=== PATIENT | male | born 1950 | race Caucasian/White ===

== ENCOUNTER 2024-12-21 08:26 | Day surgery (SDC) | payer MEDICARE, BC, SELFPAY ==
[2024-12-21] VITALS (12 sets, daily range): BP systolic 83–131; BP diastolic 59–84; PULSE 57–72; RESP 12–20; TEMP 35.9–36.6; O2SAT 92–98
[2024-12-21] MEDS: LACTATED RINGERS 1000 ML 1,000 ML 100 ML IV (08:35)
[2024-12-21] MEDS: SODIUM CHLORIDE 0.9 % (FLUSH) 10 ML SYRINGE IVF (08:59)
[2024-12-21] MEDS: CEFAZOLIN 1 GM inj IVP (10:19)
--- NOTE | 2024-12-21 10:32 | SUR.OPER ---
PATIENT QUESTIONS ANSWERED SATISFACTORILY PREOPERATIVELY.? PATIENT BROUGHT TO OR #2 PER CART.? Patient positioned supine on OR #2 bed.? The perioperative?team supported arms bilaterally on arm boards.? Final approval of positioning by surgeon.? CONTINUOUS IRRIGATION OF THE RIGHT KNEE DURING THE PROCEDURE WITH NACL.
--- NOTE | 2024-12-21 10:41 | P.ANES_ITS ---
Anesthesia Charges Start Date/Time Anesthesia Start Date: 12/21/24 Anesthesia Start Time: 10:05 Stop Date/Time Anesthesia Stop Date: 12/21/24 Anesthesia Stop Time: 11:04 Summary Extremes of Age - Over 70 or under 1: WAREHOUSE ANALYST Coding CPT Codes CPT Codes: ANESTH KNEE JOINT SURGERY - 82396 ([id number]) P4 - PT W/SEV SYS DIS THREAT LIFE, QK - SENIOR WIND TURBINE TECHNICIAN 2-4 CNCRNT ANES PROC, QX - WAREHOUSE ANALYST SVC W/ MD MED DIRECTION Additional Codes: Summary - Extremes of Age - Over 70 or under 1: WAREHOUSE ANALYST ([id number])
--- NOTE | 2024-12-21 10:41 | W.ANESCHARGE ---
Anesthesia Charges Start Date/Time Anesthesia Start Date: 12/21/24 Anesthesia Start Time: 10:05 Stop Date/Time Anesthesia Stop Date: 12/21/24 Anesthesia Stop Time: 11:04 Summary Extremes of Age - Over 70 or under 1: SUMMER CAMP COUNSELOR Coding CPT Codes CPT Codes: ANESTH KNEE JOINT SURGERY - 09218 ([id number]) P4 - PT W/SEV SYS DIS THREAT LIFE, QK - HEATER PLANER OPERATOR 2-4 CNCRNT ANES PROC, QX - SUMMER CAMP COUNSELOR SVC W/ MD MED DIRECTION Additional Codes: Summary - Extremes of Age - Over 70 or under 1: SUMMER CAMP COUNSELOR ([id number])
--- NOTE | 2024-12-21 10:42 | P.ANES_ITS ---
Anesthesia Charges Start Date/Time Anesthesia Start Date: 12/21/24 Anesthesia Start Time: 10:05 Stop Date/Time Anesthesia Stop Date: 12/21/24 Anesthesia Stop Time: 11:04 Summary Extremes of Age - Over 70 or under 1: MDA Coding CPT Codes CPT Codes: ANESTH KNEE JOINT SURGERY - 95193 ([id number]) P4 - PT W/SEV SYS DIS THREAT LIFE, QK - ICT SUPPORT ENGINEER 2-4 CNCRNT ANES PROC, QX - CABLE RIGGER SVC W/ MD MED DIRECTION Additional Codes: Summary - Extremes of Age - Over 70 or under 1: MDA ([id number])
--- NOTE | 2024-12-21 10:42 | W.ANESCHARGE ---
Anesthesia Charges Start Date/Time Anesthesia Start Date: 12/21/24 Anesthesia Start Time: 10:05 Stop Date/Time Anesthesia Stop Date: 12/21/24 Anesthesia Stop Time: 11:04 Summary Extremes of Age - Over 70 or under 1: MDA Coding CPT Codes CPT Codes: ANESTH KNEE JOINT SURGERY - 40887 ([id number]) P4 - PT W/SEV SYS DIS THREAT LIFE, QK - BLADDER CLEANER 2-4 CNCRNT ANES PROC, QX - NEWSPAPER CLIPPER SVC W/ MD MED DIRECTION Additional Codes: Summary - Extremes of Age - Over 70 or under 1: MDA ([id number])
[2024-12-21] MEDS: BUPIVACAINE 0.25% 30 ML INJECTION (10:48)
--- NOTE | 2024-12-21 10:52 | P.ORPRC_ITS ---
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 Operative intervention was recommended. The risks, benefits and expected outcomes were discussed in detail. These included but were not limited to: Infection, bleeding, injury to blood vessel or nerve, venous thromboembolism. All questions were answered to their satis faction. PROCEDURE: Spinal anesthesia was administered. The patient was placed supine on the operating room table. The right lower extremity was prepped and draped in the usual sterile fashion. The limb was exsanguinated with the Nishant bandage. The pneumatic tourniquet was inflated to 300 mmHg. A standard anterolateral portal was established. The arthroscope was introduced. The working portal was established anteromedially. Diagnostic arthroscopy was performed with findings as follows: The patellar component is intact with circumferential scarring surrounding it. The femoral component is normal, the tibial polyethylene is normal. The scarring posterior to the patellar tendon was debrided with the radiofrequency probe and shaver. A superolateral portal was placed. Then we ag gressively debrided around the patellar component and posterior to the quads tendon with the shaver and radiofrequency probe. There was a small amount of cement over the lateral side of the femoral c omponent. This was debrided with the shaver. Arthroscopic instruments were removed, the portal sites were closed with a 3-0 nylon. Portals were injected with 0.25% Marcaine without epinephrine. A dry dressing was applied, the tourniquet was released. Sponge and needle counts were correct x 2. The patient tolerated the procedure well. There were no apparent complications. They were carefully transferred to the hospital bed and taken to the postanesthesia care unit in satisfactory condition. PLAN: The patient will be discharged to home. They may weightbear as tolerates. Range of motion will be unrestricted. They will follow up in the office in 2 weeks for a wound check and suture removal.
--- NOTE | 2024-12-21 11:39 | SUR.PHASEI ---
Pt AOx3, no c/o pain. Refused ice pack. Total of 420 IVF given between OR and PACU
== END 2024-12-21 12:28 | disposition home or self-care (01) ==
LOC: OR 08:29
PROVIDERS: PCP Internal Medicine; Visit Provider Orthopaedic Surgery
PROC: (CPT 29870; principal; 2024-12-21 09:45)
DX: M25.861 Other specified joint disorders, right knee (principal)
CPT/HCPCS: 29877; 01400; 99100; J0665; J0690; J1100; J2250; J2405; J2704; J3010; J3490; J7120

== ENCOUNTER 2025-05-23 08:43 | Outpatient (CLI) | payer MEDICARE, BC, SELFPAY ==
--- NOTE | 2025-05-23 09:17 | P.PCN_ITS ---
Procedure Note Time Seen by Provider: :20 Date Seen: 05/23/25 Provider Contact Time: 09:50 Date of procedure: 05/23/25 Will [facility] bill your pro fee for this procedure?: Yes Procedure: CRYONEUROLYSIS TREATMENT REPORT REFERRING PROVIDER: Pa Pretty TREATMENT PROVIDER: Jona Gonzalez PREOPERATIVE DIAGNOSIS: Right knee pain following right total knee arthroplasty POSTOPERATIVE DIAGNOSIS: Right knee pain following right total knee arthroplasty? PROCEDURE: Cryoneurolysis of Multiple Sensory Nerves of the Knee ANESTHESIA: Local INDICATIONS: The patient is a very pleasant 74-year-old male patient with knee pain following total knee arthroplasty involving the right knee who presents today for cryoneurolysis of multiple sensory nerves to the knee for severe knee pain.?Patient medical history was reviewed. The risks, benefits, treatment alte rnatives, and complications were discussed with the patient, including but not limited to bleeding, infection, nerve or tissue damage.?Informed consent was obtained. ? PRE-TREATMENT MOTOR ASSESSMENT/PAIN SCORE: Patient was able to demonstrate intact gross motor function with plantarflexion, dorsiflexion, adduction, abduction, hip flexion, and extension of the lower extremity.?Pre-treatment pain score of out of 10 in the right knee. DESCRIPTION OF PROCEDURE: After obtaining informed consent, the patient was brought back to the treatment room and positioned supine on the table.?The right lower extremity was prepped with Chlorhexadine.?We began the procedure by performing our procedural pause.?Once this was completed and verified to be accurate, I began the procedure by identifying the nerves with the use of bedside ultrasound.?After the nerves were identified, the skin was marked and, using 1% lidocaine plain, the area of the nerves were anesthetized. ? After the anesthetic was administered, the Smart Tip 2190 cryoneurolysis needle was inserted into the treatment sites using ultrasound guidance.?Treatment was then initiated on the right lower extremity with the following nerves treated: Superior, superior medial, superior lateral, inferior medial genicular nerves and the infrapatellar branch of the saphenous nerve. At the termination of the treatment, the cryoneurolysis needle was removed with the patient's skin cleansed and Band-Aids and compression dressing applied. Patient tolerated the procedure without any incident or concern.? Patient was then instructed to stand, mobilize the joint, and was examined to ensure gross motor skills were intact. COMPLICATIONS: None POST-TREATMENT PAIN SCORE: out of 10 in the right knee DISPOSITION: Discharge instructions were given to the patient with education on the post-procedure expectations. Patient was instructed to call the Ortho clinic with any post-procedure concerns or questions.
== END 2025-05-23 08:44 | disposition home or self-care (01) ==
LOC: INJ CL 08:44
PROVIDERS: PCP Internal Medicine; Visit Provider Nurse Anesthetist, Certified Registered
DX: M17.11 Unilateral primary osteoarthritis, right knee (principal); M25.561 Pain in right knee
CPT/HCPCS: 64454

== ENCOUNTER 2025-06-13 07:38 | Outpatient (CLI) | payer MEDICARE, BC, SELFPAY | END 2025-06-13 07:39 | disposition home or self-care (01) | LOC: INJ CL 07:38 | PROVIDERS: PCP Internal Medicine; Visit Provider Nurse Anesthetist, Certified Registered | DX: M25.561 Pain in right knee (principal); Z96.651 Presence of right artificial knee joint; Z98.890 Other specified postprocedural states | CPT/HCPCS: 64624; J0665; J1885 ==